=== PATIENT | male | born 1960 | race Caucasian/White ===

== ENCOUNTER 2017-04-09 14:18 | Emergency (ER) | payer OTHER ==
[2017-04-09 14:27] VITALS: TEMP 98.6; BMI 31.1
--- NOTE | 2017-04-09 15:53 | PDOC ---
History of Present Illness - General Chief Complaint: Pain, Acute Stated Complaint: LOWER EXTREMITY PAIN Time Seen by Provider: 04/09/17 15:14 History Source: Patient Exam Limitations: No Limitations - History of Present Illness Initial Comments: 04/09/17 15:36 Patient is a [56-year-old male with no significant medical history currently on no medication was sent by Dr. michel for evaluation of bilateral leg cramping. Patient reports he had 2 episodes of sudden onset of abdominal cramping " charley horse" to left lower calf and right upper thigh. One incident occurred on the other one this morning. Has dull ache to area since. There is no swelling. Denies trauma. 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 ] Past Medical History: [Denies]. Allergies: No known allergies Medications: [None] Family History: Non-contributory Social History: Denies smoking, alcohol use, or IVDU Review of Systems GENERAL/CONSTITUTIONAL: [No fever or chills. No weakness. No weight change.] HEAD, EYES, EARS, NOSE AND THROAT: [No change in vision. No ear pain or discharge. No sore throat. ] CARDIOVASCULAR: [No chest pain or shortness of breath.] RESPIRATORY: [No cough, wheezing, or hemoptysis.] GASTROINTESTINAL: [No nausea, vomiting, diarrhea or constipation. No rectal bleeding.] GENITOURINARY: [No dysuria, frequency, or change in urination.] MUSCULOSKELETAL: [No joint or muscle swelling or pain. No neck or back pain. Cramping to the Left calf, and the right upper thigh. ] SKIN AND BREASTS: [No rash or easy bruising.] NEUROLOGIC: [No headache, vertigo, loss of consciousness, or loss of sensation.] ENDOCRINE: [No increased thirst. No abnormal weight change.] HEMATOLOGIC/LYMPHATIC: [No anemia, easy bleeding, or history of blood clots.] ALLERGIC/IMMUNOLOGIC: [No hives or skin allergy. No latex allergy.] Physical Exam: GENERAL: [The patient is awake, alert, and fully oriented, in no acute distress. ] EYES: [Pupils equal, round and reactive to light, extraocular movements intact, sclera anicteric, conjunctiva clear.] ENT: [Ears normal, nares patent, oropharynx clear without exudates. Moist mucous membranes. No uvula deviation] NECK: [Normal range of motion, supple without lymphadenopathy, JVD, or masses.] LUNGS: [Breath sounds equal, clear to auscultation bilaterally. No wheezes, and no crackles.] HEART: [Regular rate and rhythm, normal S1 and S2 without murmur, rub or gallop. ] ABDOMEN: [Soft, nontender, normoactive bowel sounds. No guarding, no rebound. No masses. No bruising or abrasions] MUSCULOSKELETAL: [Normal range of motion, no edema. No palpable spasm. No clubbing or cyanosis. No cords, erythema, or tenderness. NEUROLOGICAL: [Cranial nerves II through XII grossly intact. Normal speech, normal gait.] SKIN: [Warm, Dry, normal turgor, no rashes or lesions noted. No erythema or edema. ] 04/09/17 16:47 Past History - Past Medical History Allergies/Adverse Reactions: Allergies Allergy/AdvReac Type Severity Reaction Status Date / Time No Known Allergies Allergy Verified 04/09/17 14:22 Home Medications: Ambulatory Orders Omeprazole 20 mg PO ASDIR 04/09/17 COPD: No GI Disorders: Yes (gerd) - Immunization History Immunization Up to Date: Yes - Suicide/Smoking/Psychosocial Hx Smoking History: Current every day smoker Number of Cigarettes Smoked Daily: 1 Information on smoking cessation initiated: No Hx Alcohol Use: Yes *Physical Exam - Vital Signs Last Vital Signs Temp Pulse Resp BP Pulse Ox 98.6 F 87 20 133/83 96 04/09/17 14:22 04/09/17 14:22 04/09/17 14:22 04/09/17 14:22 04/09/17 14:22 ED Treatment Course - LABORATORY CBC & Chemistry Diagram: 04/09/17 16:03 04/09/17 15:52 Medical Decision Making - Medical Decision Making 04/09/17 16:49 A/P: Patient here for evaluation of sudden onset of spasm, cramping to left calf and right upper thigh. Patient was sent by PMD to rule out DVT. Patient with no risk factors, no edema to bilateral lower extremities will perform CBC, CMP, magnesium levels and perform ultrasound rule out DVT bilateral lower extremity 04/09/17 17:46 Laboratory Results - last 24 hr 04/09/17 04/09/17 15:52 16:03 WBC 10.5 H RBC 4.91 Hgb 13.7 Hct 41.1 MCV 83.6 MCH 27.9 MCHC 33.3 RDW 15.2 Plt Count 367 MPV 6.9 L Neutrophils % 67.5 Lymphocytes % 19.7 Monocytes % 10.3 H Eosinophils % 1.9 Basophils % 0.6 Sodium 140 Potassium 3.9 Chloride 106 Carbon Dioxide 26 Anion Gap 8 BUN 20 H Creatinine 1.1 Creat Clearance w eGFR > 60 Random Glucose 120 H Calcium 8.2 L Magnesium 2.0 Total Bilirubin 0.5 AST 18 ALT 34 Alkaline Phosphatase 121 H Total Protein 7.0 Albumin 3.2 L 04/09/17 18:31 Ultrasound no evidence of DVT we'll discharge patient home, to increase fluids. Follow-up with PMD on Tuesday.I discussed the physical exam findings, ancillary test results and final diagnoses with the patient. I answered all of the patient 's questions. The patient was satisfied with the care received and felt comfortable with the discharge plan and treatment plan. The patient will call to arrange follow-up and will return to the Emergency Department with any new, persistent or worsening symptoms. *DC/Admit/Observation/Transfer Diagnosis at time of Disposition: Leg cramping - Discharge Dispostion Disposition: HOME Condition at time of disposition: Stable Admit: No - Referrals Referrals: Trini Olsen [Primary Care Provider] - - Patient Instructions Additional Instructions: Please increase your fluid intake, Gatorade Motrin for the pain. - Post Discharge Activity Forms/Work/School Notes: Back to Work
[2017-04-09 16:12] LABS: BASO % 0.6 % (0-2.0); EOS % 1.9 % (0-4.5); HEMATOCRIT 41.1 % (35.4-49); HEMOGLOBIN 13.7 GM/dL (11.7-16.9); LYMPH % 19.7 % (8-40); MCH 27.9 pg (25.7-33.7); MCHC 33.3 g/dl (32.0-35.9); MEAN CELL VOLUME 83.6 fl (80-96); MEAN PLT VOLUME 6.9 fl (7.5-11.1); MONO % 10.3 % (3.8-10.2); NEUT % 67.5 % (42.8-82.8); PLATELET COUNT 367 K/MM3 (134-434); RBC 4.91 M/mm3 (4.00-5.60); RDW 15.2 % (11.9-15.9); WHITE BLOOD COUNT 10.5 K/mm3 (4.0-10.0)
[2017-04-09 16:40] LABS: ALBUMIN 3.2 g/dl (3.4-5.0); ALK PHOS 121 U/L (45-117); ANION GAP 8 (8-16); BILIRUBIN,TOTAL 0.5 mg/dL (0.2-1.0); BLOOD UREA NITROGEN 20 mg/dL (7-18); CALCIUM 8.2 mg/dL (8.5-10.1); CHLORIDE 106 mmol/L (98-107); CO2 26 mmol/L (21-32); CREATININE 1.1 mg/dL (0.7-1.3); GLUCOSE,RANDOM 120 mg/dL (74-106); POTASSIUM 3.9 mmol/L (3.5-5.1); SGOT/AST 18 U/L (15-37); SGPT/ALT 34 U/L (12-78); SODIUM 140 mmol/L (136-145)
[2017-04-09 18:53] VITALS: BP 137/101; PULSE 78
== END 2017-04-09 18:54 | disposition home or self-care (01) ==
LOC: JERFT 14:18 → JER 14:18
DX: M62.831 Muscle spasm of calf (principal)
CPT/HCPCS: 36415; 80053; 83735; 85025; 93970-TC; 99282-25

== ENCOUNTER 2018-06-06 18:04 | Observation (INO) | payer OTHER ==
[2018-06-06 18:19] VITALS: BMI 31.7
[2018-06-06] MEDS ORDERED: ASPIRIN 81 MG CHEWABLE TABLETS PO ONE (18:19)
--- NOTE | 2018-06-06 18:19 | PDOC ---
Rapid Medical Evaluation Chief Complaint: Chest Pain Time Seen by Provider: 06/06/18 18:08 Medical Evaluation: Allergies Allergy/AdvReac Type Severity Reaction Status Date / Time No Known Allergies Allergy Verified 06/06/18 18:16 06/06/18 18:16 c/o left sided chest pain x 5 days. history of hypercholestermia, sleep apnea. denies fever/ chills, nausea vomiting. PE: patient alert ox3. A; chest pain P: labs xray ekg patient to the ER for further management Discharge Disposition - Diagnosis Chest pain Qualifiers: Chest pain type: other chest pain Qualified Code(s): R07.89 - Other chest pain ; R07.8 - Other chest pain - Referrals Referrals: Trini Olsen [Primary Care Provider] - - Patient Instructions - Post Discharge Activity
[2018-06-06] MEDS ORDERED: ASPIRIN 81 MG CHEWABLE TABLETS ONE (18:36)
[2018-06-06 18:52] LABS: BASO % 0.3 % (0-2.0); EOS % 1.6 % (0-4.5); HEMOGLOBIN 13.8 GM/dL (11.7-16.9); LYMPH % 26.1 % (8-40); MCH 28.2 pg (25.7-33.7); MCHC 33.6 g/dl (32.0-35.9); MEAN CELL VOLUME 84.1 fl (80-96); MONO % 9.1 % (3.8-10.2); NEUT % 62.9 % (42.8-82.8); PLATELET COUNT 440 K/MM3 (134-434); RBC 4.87 M/mm3 (4.00-5.60); RDW 14.9 % (11.9-15.9); WHITE BLOOD COUNT 9.4 K/mm3 (4.0-10.0)
[2018-06-06 19:08] LABS: INR 0.92 (0.83-1.09); PROTHROMBIN TIME (PATIENT) 10.9 SEC (9.7-13.0)
--- NOTE | 2018-06-06 19:30 | PDOC ---
History of Present Illness - General Chief Complaint: Chest Pain Stated Complaint: Chest Pain Time Seen by Provider: 06/06/18 18:08 - History of Present Illness Initial Comments: 06/06/18 19:27 57 yo M with h/o HLD, GERD, WILBERT on CPAP who p/w retrosternal chest pain and pressure. Patient reports 4-5 days of unremitting, retrosternal chest pressure radiating to left shoulder and arm, with no identifiable alleviators and triggers. Pt denies h/o similar symptoms. Pt. family at bedside report 1 month increased Summers. Patient adherent to daily ASA 81 mg, but not with antihypertensive regimen 5 mg Lisinorpil because he feels asymptomatic, or statin medication d/t myalgias. CTA chest 10/31/17 unremarkable. Echo 11/08 with LV dilation, but nml Ef. Patient denies BARON, vision change, palpitations, cough, wheezing, orthopena, PND , leg swelling/pain, N/V, F,C, urinary complaints, hematuria, BPR, abdominal pain, diarrhea, constipation, lightheadedness, weakness, sensory changes. PMHx: as noted above. Denies h/o OK, stent placement, CABG. Pt. reports followign with cardiology 6 months ago, and advised to undergo cardiac catherization. Denies h/o PE/DVT. ROS: as noted SHx: tobacco use on weekends.Denies IVDA Allergies: NKDA Past History - Past Medical History Allergies/Adverse Reactions: Allergies Allergy/AdvReac Type Severity Reaction Status Date / Time No Known Allergies Allergy Verified 06/06/18 18:16 Home Medications: Ambulatory Orders Omeprazole 20 mg PO ASDIR 04/09/17 Aspirin Coated [Ecotrin -] 81 mg PO DAILY #30 tablet.ec 10/31/17 Lisinopril [Prinivil] 5 mg PO DAILY #30 tablet 10/31/17 [place]-3 Acid Ethyl Esters [Lovaza -] 2 gm PO BID #120 cap 10/31/17 COPD: No GI Disorders: Yes (gerd) HTN: Yes Hypercholesterolemia: Yes - Immunization History Immunization Up to Date: Yes - Suicide/Smoking/Psychosocial Hx Smoking History: Current some day smoker Number of Cigarettes Smoked Daily: 10 Information on smoking cessation initiated: No Hx Alcohol Use: No Drug/Substance Use Hx: No Review of Systems - Review of Systems Comments:: 06/06/18 19:29 GENERAL/CONSTITUTIONAL: No fever or chills. No weakness. HEAD, EYES, EARS, NOSE AND THROAT: No change in vision. No ear pain or discharge. No sore throat. CARDIOVASCULAR: + chest pain and shortness of breath RESPIRATORY: No cough, wheezing, or hemoptysis. GASTROINTESTINAL: No nausea, vomiting, diarrhea or constipation. GENITOURINARY: No dysuria, frequency, or change in urination. MUSCULOSKELETAL: No joint or muscle swelling or pain. No neck or back pain. SKIN: No rash NEUROLOGIC: No headache, vertigo, loss of consciousness, or change in strength/ sensation. ENDOCRINE: No increased thirst. No abnormal weight change HEMATOLOGIC/LYMPHATIC: No anemia, easy bleeding, or history of blood clots. ALLERGIC/IMMUNOLOGIC: No hives or skin allergy. *Physical Exam - Vital Signs Last Vital Signs Temp Pulse Resp BP Pulse Ox 97.5 F L 59 L 18 165/94 97 06/06/18 18:16 06/06/18 18:16 06/06/18 18:16 06/06/18 18:16 06/06/18 18:16 - Physical Exam Comments: 06/06/18 19:29 GENERAL: Awake, alert, and fully oriented, in no acute distress HEAD: No signs of trauma, normocephalic, atraumatic EYES: PERRLA, EOMI, sclera anicteric, conjunctiva clear ENT: Hearing grossly normal, nares patent, oropharynx clear without exudates. Moist mucosa NECK: Normal ROM, supple, no lymphadenopathy, JVD, or masses LUNGS: No distress, speaks full sentences, clear to auscultation bilaterally HEART: Regular rate and rhythm, normal S1 and S2, no murmurs, rubs or gallops, peripheral pulses normal and equal bilaterally. ABDOMEN: Soft, nontender, normoactive bowel sounds. No guarding, no rebound. No masses EXTREMITIES : Normal inspection, Normal range of motion, no edema. No clubbing or cyanosis. NEUROLOGICAL: Cranial nerves II through XII grossly intact. Normal speech, normal gait, no focal sensorimotor deficits SKIN: Warm, Dry, normal turgor, no rashes or lesions noted Heart Score/ECG Review - History History: Highly suspicious - Electrocardiogram EKG: Normal - Age Age: 45-65 - Risk Factors Risk Factors Heart Score: Yes Hx Hypercholesterolemia, Yes Hx Hypertension, Yes Smoking History, Yes Positive family hx of cardiac disease, Yes Hx Obesity Based on the list above the patient has:: >/=3 risk factors or Hx atherosclerotic disease - Troponin Troponin: </= normal limit - Score Heart Score - Total: 5 ED Treatment Course - LABORATORY CBC & Chemistry Diagram: 06/06/18 18:34 06/06/18 20:07 - ADDITIONAL ORDERS Additional order review: Laboratory Results 06/06/18 18:34 PT with INR 10.90 INR 0.92 06/06/18 18:34 RBC 4.87 MCV 84.1 MCHC 33.6 RDW 14.9 MPV 7.0 L Neutrophils % 62.9 Lymphocytes % 26.1 D Monocytes % 9.1 Eosinophils % 1.6 Basophils % 0.3 - Medications Given in the ED: ED Medications Discontinued Medications Generic Name Dose Route Start Last Admin Trade Name Freq PRN Reason Stop Dose Admin Aspirin 162 mg 06/06/18 18:19 06/06/18 18:38 Asa - PO 06/06/18 18:20 162 mg ONCE ONE Administration Medical Decision Making - Medical Decision Making 06/06/18 19:45 57 yo M with h/o HLD, GERD, WILBERT on CPAP who p/w 4-5 days retrosternal chest pain /pressure, radiating to left arm, and pressure and 1 month Summers. BP 161/102, vitals otherwise wnl, AF, A&Ox3. Physical exam unremarkable. ACS/OK r/o. Low risk PE based on Weils. R/o PNA. No evidence fluid overload. Low suspicion CHF, asthma, COPD. Nlo evidence aortic dissection. Currently no clinical s/s of end organ dysfunction. ED Course: Lisnopril 10 mg EKG: NSR with absent TARIK, STD. Nml interval duration and axis. Nml R wave progression. Neg Q waves. CBC: Unremarkable 06/06/18 20:38 Heart Score 5 06/06/18 20:59 CMP: Unremarkable Trop: Neg 06/06/18 21:18 Plan to admit tele/obs Dr. Reuben Stephen 06/06/18 21:45 Pt. placed on CPAP for WILBERT *DC/Admit/Observation/Transfer Diagnosis at time of Disposition: Chest pain Qualifiers: Chest pain type: other chest pain Qualified Code(s): R07.89 - Other chest pain - Discharge Dispostion Condition at time of disposition: Stable Decision to Admit order: Yes - Referrals - Patient Instructions - Post Discharge Activity
[2018-06-06] MEDS ORDERED: LISINOPRIL 10 MG TABLET (FP) PO ONE (19:58)
--- NOTE | 2018-06-06 20:40 | PDOC ---
Documentation entered by Jona Jim SCRIBE, acting as scribe for Anusha Pacheco MD. Attending Attestation - Resident Resident Name: Ranjit Engel - ED Attending Attestation I have performed the following: I have examined & evaluated the patient, The case was reviewed & discussed with the resident, I agree w/resident's findings & plan, Exceptions are as noted - HPI HPI: 06/06/18 20:08 The patient is a 57 year old male with a significant past medical history of hyperlipidemia, GERD, sleep apnea, and hypertension (non compliant with meds) who presents to the emergency department with chest pain for 5 days. The patient reports that his chest pain has been sternal with radiation to his left arm. As noted by family, the patient has been experiencing some dyspnea on exertion. He denies any fever, chills, nausea, Vomiting, diarrhea, constipation or urinary symptoms. The patient states that he was advised to come into the ED for further evaluation form his PMD. The patient denies any other complaints. - Physicial Exam PE: GENERAL: Awake, alert, and fully oriented, in no acute distress HEAD: No signs of trauma EYES: PERRLA, EOMI, sclera anicteric, conjunctiva clear ENT: Auricles normal inspection, hearing grossly normal, nares patent, oropharynx clear without exudates. Moist mucosa NECK: Normal ROM, supple, no lymphadenopathy, JVD, or masses LUNGS: Breath sounds equal, clear to auscultation bilaterally. No wheezes, and no crackles HEART: Regular rate and rhythm, normal S1 and S2, no murmurs, rubs or gallops ABDOMEN: Soft, nontender, normoactive bowel sounds. No guarding, no rebound. No masses EXTREMITIES: Normal range of motion, no edema. No clubbing or cyanosis. No cords, erythema, or tenderness NEUROLOGICAL: Cranial nerves II through XII grossly intact. Normal speech, normal gait. Motor and sensation intact SKIN: Warm, Dry, normal turgor, no rashes or lesions noted. - Medical Decision Making Pt with recent exertional cp, shortness of breath. Poor adherence to his med regimen, poor understanding that HTN is typically asymptomatic but can lead to AK/CVA. We discussed importance of taking medications, and if he is having side effects, to discuss with his physician (for instance, he is getting muscle cramping with lipitor, may need crestor). In light of recent symptoms, will require admission for further workup. Heart Score/ECG Review - History History: Highly suspicious - Electrocardiogram EKG: Normal - Age Age: 45-65 - Risk Factors Risk Factors Heart Score: Yes Hx Hypercholesterolemia, Yes Hx Hypertension, Yes Hx Obesity Based on the list above the patient has:: >/=3 risk factors or Hx atherosclerotic disease - Troponin Troponin: </= normal limit - Score Heart Score - Total: 5 - ECG Impressions Comment:: EKG 18:02- NSR 78 bpm, no acute ST/T changes Anusha Pacheco MD: This documentation has been prepared by the Hernán dan Collisia, SCRIBE, under my direction and personally reviewed by me in its entirety. I confirm that the documentation accurately reflects all work, treatment, procedures, and medical decision making performed by me.
[2018-06-06 20:57] LABS: ALBUMIN 3.3 g/dl (3.4-5.0); ALK PHOS 107 U/L (45-117); ANION GAP 9 MMOL/L (8-16); BILIRUBIN,TOTAL 0.4 mg/dL (0.2-1); BLOOD UREA NITROGEN 16 mg/dL (7-18); CALCIUM 9.1 mg/dL (8.5-10.1); CHLORIDE 111 mmol/L (98-107); CO2 23 mmol/L (21-32); CREATININE 0.8 mg/dL (0.55-1.3); GLUCOSE,RANDOM 89 mg/dL (74-106); LIPASE 160 U/L (73-393); MAGNESIUM 1.9 mg/dL (1.8-2.4); POTASSIUM 4.3 mmol/L (3.5-5.1); SGOT/AST 20 U/L (15-37); SGPT/ALT 24 U/L (13-61); SODIUM 143 mmol/L (136-145)
--- NOTE | 2018-06-06 22:16 | HP ---
CHIEF COMPLAINT: Chest Pain PCP: Dr Olsen HISTORY OF PRESENT ILLNESS: Pt is a 57 y/o gentleman with a significant past medical history of HLD, HTN, WILBERT on CPAP, who presented to [facility] at the behest of his PMD due to left sided chest pain and arm pain. Per pt, he endured a mechanical fall a few months ago and landed on his left arm. Since this injury, t has had intermittent left arm pain. Beginning 5 days ago, pt developed left sided chest pain. Pt describes this pain as sharp in nature and intermittent. Pt states that he notices the pain is exacerbated when he is on a recliner chair; pain is assuaged when he is lying in a supine position. Pt endorses he tried Tylenol which partially decreased his pain. 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 When questioned about whether chest pain is related to physical activity, pt stated he did experience any chest pain during work this afternoon. Denies any h/o HI or cardiac abnormalities. Recently underwent a stress test 2 months ago in which he was told it was "very good". Denies chest pain, shortness of breath, nausea/vomiting, diaphoresis, or lightheadedness. Social Hx- Smokes 1/2 pack cigarettes on weekend. Drinks whiskey on weekends, small glass. Surg Hx R meniscus repair FH Father NC, Mother NC. Sister DM NKDA ER course was notable for: (1) Troponin <0.02. No EKG changes (2) (3) Family History: Allergies No Known Allergies Allergy (Verified 06/06/18 18:16) HOME MEDICATIONS: Home Medications Medication Instructions Recorded Omeprazole 20 mg PO ASDIR 04/09/17 Aspirin Coated [Ecotrin -] 81 mg PO DAILY #30 tablet.ec 10/31/17 Lisinopril [Prinivil] 5 mg PO DAILY #30 tablet 10/31/17 [place]-3 Acid Ethyl Esters [Lovaza 2 gm PO BID #120 cap 10/31/17 -] REVIEW OF SYSTEMS CONSTITUTIONAL: Absent: fever, chills, diaphoresis, generalized weakness, malaise, loss of appetite, weight change HEENT: Absent: rhinorrhea, nasal congestion, throat pain, throat swelling, difficulty swallowing, mouth swelling, ear pain, eye pain, visual changes CARDIOVASCULAR: PRESENT chest pain RESPIRATORY: Absent: cough, shortness of breath, dyspnea with exertion, orthopnea, wheezing, stridor, hemoptysis GASTROINTESTINAL: Absent: abdominal pain, abdominal distension, nausea, vomiting, diarrhea, constipation, melena, hematochezia GENITOURINARY: Absent: dysuria, frequency, urgency, hesitancy, hematuria, flank pain, genital pain MUSCULOSKELETAL: PRESENT: myalgia SKIN: Absent: rash, itching, pallor HEMATOLOGIC/IMMUNOLOGIC: Absent: easy bleeding, easy bruising, lymphadenopathy, frequent infections ENDOCRINE: Absent: unexplained weight gain, unexplained weight loss, heat intolerance, cold intolerance NEUROLOGIC: Absent: headache, focal weakness or paresthesias, dizziness, unsteady gait, seizure, mental status changes, bladder or bowel incontinence PSYCHIATRIC: Absent: anxiety, depression, suicidal or homicidal ideation, hallucinations. PHYSICAL EXAMINATION Vital Signs - 24 hr 06/06/18 06/06/18 18:16 19:40 Temperature 97.5 F L 97.7 F Pulse Rate 59 L 83 Pulse Rate [ 83 Left] Respiratory 18 20 Rate Blood Pressure 165/94 Blood Pressure 161/106 H [Right] O2 Sat by Pulse 97 96 Oximetry (%) GENERAL: AAOx3 NAD HEAD: Normal with no signs of trauma. EYES: EOMI Sclera Clear EARS, NOSE, THROAT: MMM NECK: Supple No JVD LUNGS: Decreased bs at bases HEART: RRR Nl s1s2, reproducible left sided chest chain TTP. ABDOMEN: Ventral Hernia. Obese NDNT MUSCULOSKELETAL: FROM UPPER EXTREMITIES: 2+ pulses, warm, well-perfused. No cyanosis. No clubbing. No peripheral edema. LOWER EXTREMITIES:DP 2+, No CCE NEUROLOGICAL: Cranial nerves II-XII intact. Normal speech. PSYCHIATRIC: Cooperative. Good eye contact. Appropriate mood and affect. SKIN: Warm, dry, normal turgor, no rashes or lesions noted, normal capillary refill. Laboratory Results - last 24 hr 06/06/18 06/06/18 06/06/18 18:34 18:34 18:34 WBC 9.4 RBC 4.87 Hgb 13.8 Hct 41.0 MCV 84.1 MCH 28.2 MCHC 33.6 RDW 14.9 Plt Count 440 H MPV 7.0 L Absolute Neuts (auto) 5.9 Neutrophils % 62.9 Lymphocytes % 26.1 D Monocytes % 9.1 Eosinophils % 1.6 Basophils % 0.3 Nucleated RBC % 0 PT with INR 10.90 INR 0.92 Sodium Cancelled Potassium Cancelled Chloride Cancelled Carbon Dioxide Cancelled Anion Gap Cancelled BUN Cancelled Creatinine Cancelled Creat Clearance w eGFR Cancelled Random Glucose Cancelled Calcium Cancelled Magnesium Cancelled Total Bilirubin Cancelled AST Cancelled ALT Cancelled Alkaline Phosphatase Cancelled Creatine Kinase Cancelled Troponin I Cancelled Total Protein Cancelled Albumin Cancelled Lipase 06/06/18 06/06/18 06/06/18 20:07 20:07 20:07 WBC RBC Hgb Hct MCV MCH MCHC RDW Plt Count MPV Absolute Neuts (auto) Neutrophils % Lymphocytes % Monocytes % Eosinophils % Basophils % Nucleated RBC % PT with INR INR Sodium 143 Potassium 4.3 Chloride 111 H Carbon Dioxide 23 Anion Gap 9 BUN 16 Creatinine 0.8 Creat Clearance w eGFR 99.29 Random Glucose 89 Calcium 9.1 Magnesium 1.9 Cancelled Total Bilirubin 0.4 AST 20 ALT 24 Alkaline Phosphatase 107 Creatine Kinase 148 Cancelled Troponin I < 0.02 Cancelled Total Protein 7.0 Albumin 3.3 L Lipase 160 Cancelled 06/06/18 20:07 WBC RBC Hgb Hct MCV MCH MCHC RDW Plt Count MPV Absolute Neuts (auto) Neutrophils % Lymphocytes % Monocytes % Eosinophils % Basophils % Nucleated RBC % PT with INR INR Sodium Potassium Chloride Carbon Dioxide Anion Gap BUN Creatinine Creat Clearance w eGFR Random Glucose Calcium Magnesium Total Bilirubin AST ALT Alkaline Phosphatase Creatine Kinase Cancelled Troponin I Cancelled Total Protein Albumin Lipase ASSESSMENT/PLAN: Pt is a 57 y/o gentleman with a significant past medical history of HLD, HTN, WILBERT on CPAP, who presented to [facility] at the behest of his PMD due to left sided chest pain and arm pain. Atypical Chest Pain. R/o ACS. -Troponin <0.02 -Given ASA 162 in ED. Will continue on ASA 81 Daily -No EKG abnormalities. No ST/T changes. -Trend Troponin -Can undergo cardiac work-up as outpatient including echo -Underwent stress test 2 months ago. Was told normal. HLD -Was on STATIN. No longer taking medication as experienced severe myalgia -Consider alternative agent. Repatha? HTN States he was taking Lisinopril but no longer taking as he feels well. Counseled on medication compliance and importance of daily adherence Counseled on a low carbohydrate diet, avoidance of sugary beverages WILBERT C/w CPA FEN No standing fluids Monitor Electrolytes Low Salt Diet DVT ppx: HEPSQTID Dispo: Tele Obs Visit type - Emergency Visit Emergency Visit: Yes ED Registration Date: 06/06/18 Care time: The patient presented to the Emergency Department on the above date and was hospitalized for further evaluation of their emergent condition. - New Patient This patient is new to me today: Yes Date on this admission: 06/07/18 - Critical Care Critical Care patient: No
[2018-06-06] MEDS ORDERED: LISINOPRIL 5 MG TABLET (FP) ONE (22:24)
--- NOTE | 2018-06-06 23:01 | PN ---
Teaching Attending Note Name of Resident: Brady Cross ATTENDING PHYSICIAN STATEMENT I saw and evaluated the patient. I reviewed the resident's note and discussed the case with the resident. I agree with the resident's findings and plan as documented. CC: sent from the PMD office for 1 week of chest pain SUBJECTIVE: He is a 57 Y/O M W HTN, HLD,Obesity, WILBERT on CPAP, P/W 1 week of recurrent episodes of sharp, non radiating , left sided, chest pain, lasting for 1-3 seconds, usually gets triggered with sitting on his recliner ad moving his arm in a certain way,does not feel it when he is moving heavy articles or during any other physical activity, no SOB, no palpitation, no STEWART during theses episodes. States that has unlimited ET with no recent change. has no rash on the skin, no Hx of zoster, no other cardiopulmonary complaints with the episode. The chronic sharp neuropathic pain in the L arm dose not correlate with the pain in the OBJECTIVE: in no distress CVS:S1S2 CTAB Abd:BS+ NT/ND ext: no edema, 2+ DP pulses B/L CBCD WBC 9.4 K/mm3 (4.0-10.0) 06/06/18 18:34 RBC 4.87 M/mm3 (4.00-5.60) 06/06/18 18:34 Hgb 13.8 GM/dL (11.7-16.9) 06/06/18 18:34 Hct 41.0 % (35.4-49) 06/06/18 18:34 MCV 84.1 fl (80-96) 06/06/18 18:34 MCHC 33.6 g/dl (32.0-35.9) 06/06/18 18:34 RDW 14.9 % (11.9-15.9) 06/06/18 18:34 Plt Count 440 K/MM3 (134-434) H 06/06/18 18:34 MPV 7.0 fl (7.5-11.1) L 06/06/18 18:34 CMP Sodium 143 mmol/L (136-145) 06/06/18 20:07 Potassium 4.3 mmol/L (3.5-5.1) 06/06/18 20:07 Chloride 111 mmol/L (98-107) H 06/06/18 20:07 Carbon Dioxide 23 mmol/L (21-32) 06/06/18 20:07 Anion Gap 9 MMOL/L (8-16) 06/06/18 20:07 BUN 16 mg/dL (7-18) 06/06/18 20:07 Creatinine 0.8 mg/dL (0.55-1.3) 06/06/18 20:07 Creat Clearance w eGFR 99.29 (>60) 06/06/18 20:07 Random Glucose 89 mg/dL (74-106) 06/06/18 20:07 Calcium 9.1 mg/dL (8.5-10.1) 06/06/18 20:07 Total Bilirubin 0.4 mg/dL (0.2-1) 06/06/18 20:07 AST 20 U/L (15-37) 06/06/18 20:07 ALT 24 U/L (13-61) 06/06/18 20:07 Alkaline Phosphatase 107 U/L (45-117) 06/06/18 20:07 Total Protein 7.0 g/dl (6.4-8.2) 06/06/18 20:07 Albumin 3.3 g/dl (3.4-5.0) L 06/06/18 20:07 CARDIAC ENZYMES Creatine Kinase 148 U/L (26-308) 06/06/18 20:07 Troponin I < 0.02 ng/ml (0.00-0.05) 06/06/18 20:07 ASSESSMENT AND PLAN: 57 Y/O M W cardiovascular RF, with non anginal chest pain. less likely to be in the setting of ACS, recent TTE with no significant Valcular disease. pain is most likely MSK pain. At the same time in the setting of WILBERT should consider arrhythmia as cause of episodes of sharp pain, but can be evaluate as O/P Will C/W ASA. statin, AntiHTN medication rest of the management per HS note.
[2018-06-07 02:26] VITALS: TEMP 98.6
--- NOTE | 2018-06-07 03:14 | DS ---
Physical Exam: SUBJECTIVE: Patient seen and examined. OBJECTIVE: Vital Signs Period Temp Pulse Resp BP Sys/Reynoso Pulse Ox Last 24 Hr 97.5 F-98.6 F 59-87 18-20 122-165/76-106 96-100 PHYSICAL EXAM GENERAL: AAOx3 NAD HEAD: Normal with no signs of trauma. EYES: EOMI Sclera Clear EARS, NOSE, THROAT: MMM NECK: Supple No JVD LUNGS: Decreased bs at bases HEART: RRR Nl s1s2, reproducible left sided chest chain TTP. ABDOMEN: Ventral Hernia. Obese NDNT MUSCULOSKELETAL: FROM UPPER EXTREMITIES: 2+ pulses, warm, well-perfused. No cyanosis. No clubbing. No peripheral edema. LOWER EXTREMITIES:DP 2+, No CCE NEUROLOGICAL: Cranial nerves II-XII intact. Normal speech. PSYCHIATRIC: Cooperative. Good eye contact. Appropriate mood and affect. SKIN: Warm, dry, normal turgor, no rashes or lesions noted, normal capillary refill. LABS Laboratory Results - last 24 hr 06/06/18 06/06/18 06/06/18 18:34 18:34 18:34 WBC 9.4 RBC 4.87 Hgb 13.8 Hct 41.0 MCV 84.1 MCH 28.2 MCHC 33.6 RDW 14.9 Plt Count 440 H MPV 7.0 L Absolute Neuts (auto) 5.9 Neutrophils % 62.9 Lymphocytes % 26.1 D Monocytes % 9.1 Eosinophils % 1.6 Basophils % 0.3 Nucleated RBC % 0 PT with INR 10.90 INR 0.92 Sodium Cancelled Potassium Cancelled Chloride Cancelled Carbon Dioxide Cancelled Anion Gap Cancelled BUN Cancelled Creatinine Cancelled Creat Clearance w eGFR Cancelled Random Glucose Cancelled Calcium Cancelled Magnesium Cancelled Total Bilirubin Cancelled AST Cancelled ALT Cancelled Alkaline Phosphatase Cancelled Creatine Kinase Cancelled Troponin I Cancelled Total Protein Cancelled Albumin Cancelled Lipase 06/06/18 06/06/18 06/06/18 20:07 20:07 20:07 WBC RBC Hgb Hct MCV MCH MCHC RDW Plt Count MPV Absolute Neuts (auto) Neutrophils % Lymphocytes % Monocytes % Eosinophils % Basophils % Nucleated RBC % PT with INR INR Sodium 143 Potassium 4.3 Chloride 111 H Carbon Dioxide 23 Anion Gap 9 BUN 16 Creatinine 0.8 Creat Clearance w eGFR 99.29 Random Glucose 89 Calcium 9.1 Magnesium 1.9 Cancelled Total Bilirubin 0.4 AST 20 ALT 24 Alkaline Phosphatase 107 Creatine Kinase 148 Cancelled Troponin I < 0.02 Cancelled Total Protein 7.0 Albumin 3.3 L Lipase 160 Cancelled 06/06/18 06/07/18 20:07 02:37 WBC RBC Hgb Hct MCV MCH MCHC RDW Plt Count MPV Absolute Neuts (auto) Neutrophils % Lymphocytes % Monocytes % Eosinophils % Basophils % Nucleated RBC % PT with INR INR Sodium Potassium Chloride Carbon Dioxide Anion Gap BUN Creatinine Creat Clearance w eGFR Random Glucose Calcium Magnesium Total Bilirubin AST ALT Alkaline Phosphatase Creatine Kinase Cancelled Troponin I Cancelled < 0.02 Total Protein Albumin Lipase HOSPITAL COURSE: Date of Admission:06/06/18 Pt is a 57 y/o gentleman with a significant PMH of WILBERT, HLD, and HTN [facility] and left arm pain. Two Troponin levels were negative. EKG revealed no abnormalities. Pt DC'ed home with instructions to follow up with his soap tender this week as well as his primary care doctor. Date of Discharge: 06/07/18 Minutes to complete discharge: 35 Discharge Summary Reason For Visit: SENSATION OF CHEST PRESSURE, CHEST PAIN Condition: Stable - Instructions Diet, Activity, Other Instructions: You were in the hospital because you had chest pain. While you were here, you had an EKG done that did not show any abnormalities. You also had heart enzymes checked- they were normal. Continue your home medications. It is also important that you eat a heart healthy diet to help lose weight. We will provide you with reading on this. Please follow up with your primary care doctor in 1 week Also you must follow with your soap tender. If you do not have a soap tender, you may follow up with Dr. Quintero this week. You should have your cholesterol checked and you will likely need a statin- which is a medication to lower cholesterol. Since you had muscle aches on other statins, the soap tender can discuss alternative choices with you. He will also discuss whether you need to have an ECHO (picture of your heart) taken. Referrals: Larry Quintero MD [Staff Physician] - 1 Week Trini Olsen [Primary Care Provider] - Disposition: HOME - Home Medications Comprehensive Discharge Medication List: Ambulatory Orders Omeprazole 20 mg PO ASDIR 04/09/17 Aspirin Coated [Ecotrin -] 81 mg PO DAILY #30 tablet.ec 10/31/17 Lisinopril [Prinivil] 5 mg PO DAILY #30 tablet 10/31/17 Selma-3 Acid Ethyl Esters [Lovaza -] 2 gm PO BID #120 cap 10/31/17 This patient is new to me today: No Emergency Visit: Yes ED Registration Date: 06/06/18 Care time: The patient presented to the Emergency Department on the above date and was hospitalized for further evaluation of their emergent condition. Critical Care patient: No - Discharge Referral Referred to [facility] No
[2018-06-07 05:59] LABS: BASO % 0.3 % (0-2.0); HEMOGLOBIN 13.2 GM/dL (11.7-16.9); LYMPH % 22.5 % (8-40); MCH 28.2 pg (25.7-33.7); MCHC 33.8 g/dl (32.0-35.9); MEAN CELL VOLUME 83.5 fl (80-96); MEAN PLT VOLUME 6.9 fl (7.5-11.1); MONO % 10.8 % (3.8-10.2); NEUT % 64.4 % (42.8-82.8); PLATELET COUNT 424 K/MM3 (134-434); RBC 4.68 M/mm3 (4.00-5.60); RDW 14.9 % (11.9-15.9); WHITE BLOOD COUNT 8.4 K/mm3 (4.0-10.0)
[2018-06-07] MEDS ORDERED: HEPARIN NA (PORCINE) 5,000 UNITS/ML 1ML VIAL SQ SCH (06:00)
[2018-06-07 06:08] LABS: INR 1.02 (0.83-1.09)
[2018-06-07 06:11] LABS: ACTIVATED PTT 33.1 SECONDS (25.2-36.5)
[2018-06-07 06:31] LABS: ANION GAP 4 MMOL/L (8-16); BLOOD UREA NITROGEN 16 mg/dL (7-18); CALCIUM 8.9 mg/dL (8.5-10.1); CHLORIDE 108 mmol/L (98-107); CO2 27 mmol/L (21-32); CREATININE 0.7 mg/dL (0.55-1.3); GLUCOSE,RANDOM 105 mg/dL (74-106); PHOSPHOROUS 3.5 mg/dL (2.5-4.9); POTASSIUM 4.2 mmol/L (3.5-5.1); SODIUM 139 mmol/L (136-145)
[2018-06-07] MEDS ORDERED: ASPIRIN 81 MG CHEWABLE TABLETS PO SCH (10:00)
--- NOTE | 2018-06-07 12:27 | EKG ---
Test Reason : Blood Pressure : / mmHG Vent. Rate : 078 BPM Atrial Rate : 078 BPM P-R Int : 172 ms QRS Dur : 110 ms QT Int : 364 ms P-R-T Axes : 058 027 049 degrees QTc Int : 414 ms NORMAL SINUS RHYTHM NORMAL ECG WHEN COMPARED WITH ECG OF 30-OCT-2017 15:47, NO SIGNIFICANT CHANGE WAS FOUND Confirmed by JOSIE TENROIO MD ([id number]) on 06/07/2018 12:26:58 PM Referred By: Confirmed By:JOSIE TENORIO MD
[2018-06-07 12:31] VITALS: BP 121/79; PULSE 74
[2018-06-07] MEDS ORDERED: ATORVASTATIN CA 40 MG TABLET (FP) PO SCH (22:00)
== END 2018-06-07 14:00 | disposition home or self-care (01) ==
LOC: JER 18:04 → JERBED 20:00 → J2W 06-07 02:07
PROVIDERS: ADMIT Internal Medicine; ATTEND Internal Medicine
DX: R07.89 Other chest pain (principal); I10 Essential (primary) hypertension; E78.5 Hyperlipidemia, unspecified; K21.9 Gastro-esophageal reflux disease without esophagitis; G47.33 Obstructive sleep apnea (adult) (pediatric); Z99.89 Dependence on other enabling machines and devices; Z91.14 Patient's other noncompliance with medication regimen
CPT/HCPCS: 36415; 71045-TC-FY; 80048; 80053; 82550; 82962; 83690; 83735; 84100; 84484; 85025; 85610; 85730; 93005; 93010; 99285-25; G0378

== ENCOUNTER 2019-11-23 12:07 | Emergency (ER) | payer OTHER ==
[2019-11-23 12:15] VITALS: BMI 31.7
--- NOTE | 2019-11-23 12:41 | PDOC ---
History of Present Illness - General Chief Complaint: Shortness of Breath Stated Complaint: ANXIETY ATTACKS Time Seen by Provider: 11/23/19 12:41 - History of Present Illness Initial Comments: 59 YOM h/o htn, hld, panic attacks, presents with anxiety, chest tightness, rapid heart beat and SOB since today. Has episodes like this since one month. During these episodes he feels anxious w/ palps, cp, sob. Reports sob with walking up stairs lately. Reports recent stress test which was normal. Seen here for cardiac w/u 1 month ago which was negative. Patient experienced blurred vision a week later, saw optho who suggested retinal artery occlusion with recs to f/u and will likely resolve on its own. Since arriving at ER today sx have largely improved. Denies fever, chils, N/V/D, diaphoresis, recent sick contacts, or travel, denies swelling, or pain with inspiration. Constitutional: No Weight Change, No Fever, No Chills, No Night Sweats, No Fatigue, No Malaise ENT/Mouth: No Hearing Changes, No Ear Pain, No Nasal Congestion, No Sinus Pain, No Hoarseness, No sore throat, No Rhinorrhea, No Swallowing Difficulty Eyes: No Eye Pain, No Swelling, No Redness, No Foreign Body, No Discharge, No Vision Changes Cardiovascular: + Chest Pain, + SOB, No PND, + Dyspnea on Exertion, No Orthopnea, No Claudication, No Edema, + Palpitations Respiratory: No Cough, No Sputum, No Wheezing, No Smoke Exposure, No Dyspnea Gastrointestinal: No Nausea, No Vomiting, No Diarrhea, No Constipation, No Pain, No Heartburn, No Anorexia, No Dysphagia, No Hematochezia, No Melena, No Flatulence, No Jaundice Genitourinary: No Dysmenorrhea, No DUB, No Dyspareunia, No Dysuria, No Urinary Frequency, No Hematuria, No Urinary Incontinence, No Urgency, No Flank Pain, No Urinary Flow Changes, No Hesitancy Musculoskeletal: No Arthralgias, No Myalgias, No Joint Swelling, No Joint Stiffness, No Back Pain, No Neck Pain, No Injury History Skin: No Skin Lesions, No Pruritis, No Hair Changes, No Breast/Skin Changes, No Nipple Discharge Neuro: No Weakness, No Numbness, No Paresthesias, No Loss of Consciousness, No Syncope, No Dizziness, No Headache, No Coordination Changes, No Recent Falls Psych: + Anxiety/Panic, No Depression, No Insomnia, No Personality Changes, No Delusions, No Rumination, No SI/HI/AH/VH, No Social Issues, No Memory Changes, No Violence/Abuse Hx., No Eating Concerns Heme/Lymph: No Bruising, No Bleeding, No Transfusions History, No Lymphadenopathy Endocrine: No Polyuria, No Polydipsia, No Temperature Intolerance Past History - Medical History Allergies/Adverse Reactions: Allergies Allergy/AdvReac Type Severity Reaction Status Date / Time No Known Allergies Allergy Verified 11/23/19 12:34 Home Medications: Ambulatory Orders Omeprazole 40 mg PO ASDIR 04/09/17 Aspirin Coated [Ecotrin -] 81 mg PO DAILY #30 tablet.ec 10/31/17 Lisinopril [Prinivil] 5 mg PO DAILY #30 tablet 10/31/17 Buspirone HCl [Buspar -] 10 mg PO BID 11/23/19 Pravastatin Sodium [Pravachol (Nf)] 40 mg PO HS 11/23/19 COPD: No GI Disorders: Yes (gerd) HTN: Yes Hypercholesterolemia: Yes Psychiatric Problems: Yes (Anxiety) - Immunization History Immunization Up to Date: Yes - Psycho-Social/Smoking History Smoking History: Former smoker Have you smoked in the past 12 months: No Number of Cigarettes Smoked Daily: 3 Information on smoking cessation initiated: No - Substance Abuse Hx (Audit-C & DAST Scrn) How often the patient has a drink containing alcohol: Monthly or less Number of drinks the patient has on a typical day: 3 or 4 Score: In Men: 4 or > Positive; In Women: 3 or > Positive: 2 Screen Result (Pos requires Nsg. Audit-10AR): Negative In the last yr the pt used illegal drug/Rx for NonMed reason: No Score: Yes response is considered Positive: 0 Screen Result (Positive result requires Nsg. DAST-10): Negative *Physical Exam - Vital Signs Last Vital Signs Temp Pulse Resp BP Pulse Ox 98.1 F 68 19 170/90 99 11/23/19 12:11 11/23/19 12:11 11/23/19 12:11 11/23/19 12:11 11/23/19 12:11 - Physical Exam General Appearance: Yes: Nourished, Appropriately Dressed, Moderate Distress HEENT: positive: EOMI, IMANI, Normal ENT Inspection, Normal Voice, Symmetrical, TMs Normal, Pharynx Normal Neck: positive: Trachea midline, Normal Thyroid, Rigid Respiratory/Chest: positive: Lungs Clear, Normal Breath Sounds, Respiratory Distress Cardiovascular: positive: Regular Rhythm, Regular Rate, S1, S2 Gastrointestinal/Abdominal: positive: Normal Bowel Sounds, Flat, Soft Musculoskeletal: positive: Normal Inspection, CVA Tenderness ED Treatment Course - LABORATORY CBC & Chemistry Diagram: 11/23/19 13:00 11/23/19 13:00 Medical Decision Making - Medical Decision Making 59 YOM h/o anxiety and retinal artery occlusion presents for sob, rapid heart rate and chest tightness - BP in 170, vitals otherwise wnl - exam wnl - patient reports multiple episodes of similar sx, attributes to anxiety - heart score of 3 - CBC, CMP, cardiac profile, ekg, cxr reassess: - patient is feeling better - will give cardiology, primary care and psycho follow up and dc to home Discharge - Discharge Information Problems reviewed: Yes Clinical Impression/Diagnosis: Anxiety Condition: Good - Admission No - Follow up/Referral Referrals: Swati Olsen-Brittny Mart [Primary Care Provider] - Lonnie Davis MD [Staff Physician] - [facility] [place] [facility] [place] [Provider Group] Steve Roth MD [Non Staff, Medical] - Janice Kat [Non Staff, Medical] - Amber Garrett MD [Staff Physician] - Adama Allison MD [Non Staff, Medical] - Laurent Li MD [Staff Physician] - - Patient Discharge Instructions Patient Printed Discharge Instructions: DI for Anxiety -- Adult Additional Instructions: You came to the ER for rapid heart rate, chest tightness, and feelings of anxiety. You received labs and EKG. You labs and EKG were un concerning for an acute cardiac event. You were considered medically stable and safe to return home. Please follow up with your sales special agent regarding your visit to the ER. Please also consider finding a psychiatrist to manage your anxiety. WHAT YOU NEED TO KNOW: Chest pain can be caused by a range of conditions, from not serious to life- threatening. Chest pain can be a symptom of a digestive problem, such as acid reflux or a stomach ulcer. An anxiety attack or a strong emotion, such as anger, can also cause chest pain. Infection, inflammation, or a fracture in the bones or cartilage in your chest can cause pain or discomfort. Sometimes chest pain or pressure is caused by poor blood flow to your heart (angina). Chest pain may also be caused by life-threatening conditions such as a heart attack or blood clot in your lungs. DISCHARGE INSTRUCTIONS: Call 911 if: You have any of the following signs of a heart attack: Squeezing, pressure, or pain in your chest You may also have any of the following: Discomfort or pain in your back, neck, jaw, stomach, or arm Shortness of breath Nausea or vomiting Lightheadedness or a sudden cold sweat Return to the emergency department if: You have chest discomfort that gets worse, even with medicine. You cough or vomit blood. Your bowel movements are black or bloody. You cannot stop vomiting, or it hurts to swallow. Contact your healthcare provider if: You have questions or concerns about your condition or care. - Post Discharge Activity
[2019-11-23 13:30] LABS: BASO % 0.4 % (0-2.0); EOS % 1.8 % (0-4.5); HEMATOCRIT 38.4 % (35.4-49); MCH 28.5 pg (25.7-33.7); MCHC 33.8 g/dl (32.0-35.9); MEAN CELL VOLUME 84.4 fl (80-96); MONO % 9.8 % (3.8-10.2); PLATELET COUNT 401 K/MM3 (134-434); RBC 4.55 M/mm3 (4.00-5.60); WHITE BLOOD COUNT 8.2 K/mm3 (4.0-10.0)
[2019-11-23 14:18] LABS: ALBUMIN 3.5 g/dl (3.4-5.0); ALK PHOS 95 U/L (45-117); ANION GAP 6 MMOL/L (8-16); BILIRUBIN,TOTAL 0.4 mg/dL (0.2-1); BLOOD UREA NITROGEN 13.8 mg/dL (7-18); CALCIUM 9.1 mg/dL (8.5-10.1); CHLORIDE 106 mmol/L (98-107); CO2 26 mmol/L (21-32); CREATININE 0.9 mg/dL (0.55-1.3); GLUCOSE,RANDOM 92 mg/dL (74-106); POTASSIUM 4.3 mmol/L (3.5-5.1); SGOT/AST 20 U/L (15-37); SGPT/ALT 29 U/L (13-61); SODIUM 137 mmol/L (136-145); TOT PROT 7.4 g/dl (6.4-8.2)
--- NOTE | 2019-11-23 14:51 | EKG ---
Test Reason : Blood Pressure : / mmHG Vent. Rate : 053 BPM Atrial Rate : 053 BPM P-R Int : 188 ms QRS Dur : 114 ms QT Int : 436 ms P-R-T Axes : 053 009 026 degrees QTc Int : 409 ms SINUS BRADYCARDIA WHEN COMPARED WITH ECG OF 06-OCT-2019 13:40, NO SIGNIFICANT CHANGE WAS FOUND Confirmed by CHATO JACKSON MD ([id number]) on 11/23/2019 2:51:31 PM Referred By: Confirmed By:CHATO JACKSON MD
--- NOTE | 2019-11-23 14:56 | PDOC ---
Documentation entered by Gabriel Chamberlain SCRIBE, acting as scribe for Girish Bender MD. Girish Bender MD: This documentation has been prepared by the rodibeBulmaro Angel, SCRIBE, under my direction and personally reviewed by me in its entirety. I confirm that the documentation accurately reflects all work, treatment, procedures, and medical decision making performed by me. Attending Attestation - Resident Resident Name: RejiKota monae - ED Attending Attestation I have performed the following: I have examined & evaluated the patient, The case was reviewed & discussed with the resident, I agree w/resident's findings & plan, Exceptions are as noted - HPI HPI: 11/23/19 13:42 The patient is a 59 year old male with a significant past medical history of HTN, HLD and hx of a recent 'eye stroke' who presents to the ED with palpitations, chest tightness, and SOB.. The patient states he experiences these episodes occasionally but has increasing in frequency since he had his eye stroke. Pt attributes his symptmos to anxiety, states that the sypmtmos starts spontnaously and usually respoves spontaneously, lasting a few minutes before resolving. The pt describes the sypmtoms as feeling a rapid heart beat. He denie sany n/v, f/c, headache, sob, cp, abd pain, back pain, neck pain. - Physicial Exam PE: 11/23/19 14:39 GENERAL: The patient is awake, alert, and fully oriented, Nontoxic - in no acute distress. HEAD: Normocephalic, atraumatic. EYES: extraocular movements intact, sclera anicteric, conjunctiva clear. Diminished vision in the R eye ENT: Normal voice, Moist mucous membranes. NECK: Normal range of motion, supple LUNGS: Breath sounds equal, clear to auscultation bilaterally. No wheezes, no rhonchi, no rales. HEART: Regular rate and rhythm, normal S1 and S2 without murmur, rub or gallop. ABDOMEN: Soft, nontender, No guarding, no rebound. No CVA tenderness EXTREMITIES: Normal range of motion, trace edema. NEUROLOGICAL: No facial assymetry, Normal speech, PSYCH: Normal mood, normal affect. SKIN: Warm, Dry, normal turgor, - Medical Decision Making 11/23/19 14:44 Differential for the patient's symptoms includes possible ACS however in light of his recent CR AO, unclear cause of his CRAO - ?runs of afib leading to his CRAO? 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 davis of cardiology - agrees with our management recommends that he fu with him as an outpatient cardiology for holter monitor return precautions were discussed Heart Score/ECG Review - ECG Impressions Comment:: 11/23/19 14:48 Twelve-lead EKG was performed and reviewed by me. There is normal sinus rhythm with a rate of 53 The axis is normal. The intervals are normal. There is normal R wave progression There are no ST or T wave abnormalities. poor baseline, +artifacts Discharge - Discharge Information Problems reviewed: Yes Clinical Impression/Diagnosis: Palpitations Condition: Improved Disposition: HOME - Admission No - Follow up/Referral Referrals: [facility] [place] [facility] [place] [Provider Group] Steve Roth MD [Non Staff, Medical] - Janice Kat [Non Staff, Medical] - Amber Garrett MD [Staff Physician] - Laurent Li MD [Staff Physician] - Adama Allison MD [Non Staff, Medical] - Lonnie Davis MD [Staff Physician] - Trini Olsen [Primary Care Provider] - - Patient Discharge Instructions Patient Printed Discharge Instructions: DI for Anxiety -- Adult Additional Instructions: You came to the ER for rapid heart rate, chest tightness, and feelings of anxiety. You received labs and EKG. You labs and EKG were un concerning for an acute cardiac event. You were considered medically stable and safe to return home. Please follow up with your warp knit operator regarding your visit to the ER. Please also consider finding a psychiatrist to manage your anxiety. WHAT YOU NEED TO KNOW: Chest pain can be caused by a range of conditions, from not serious to life- threatening. Chest pain can be a symptom of a digestive problem, such as acid reflux or a stomach ulcer. An anxiety attack or a strong emotion, such as anger, can also cause chest pain. Infection, inflammation, or a fracture in the bones or cartilage in your chest can cause pain or discomfort. Sometimes chest pain or pressure is caused by poor blood flow to your heart (angina). Chest pain may also be caused by life-threatening conditions such as a heart attack or blood clot in your lungs. DISCHARGE INSTRUCTIONS: Call 911 if: You have any of the following signs of a heart attack: Squeezing, pressure, or pain in your chest You may also have any of the following: Discomfort or pain in your back, neck, jaw, stomach, or arm Shortness of breath Nausea or vomiting Lightheadedness or a sudden cold sweat Return to the emergency department if: You have chest discomfort that gets worse, even with medicine. You cough or vomit blood. Your bowel movements are black or bloody. You cannot stop vomiting, or it hurts to swallow. Contact your healthcare provider if: You have questions or concerns about your condition or care. - Post Discharge Activity
[2019-11-23 18:33] VITALS: BP 129/78; PULSE 60; TEMP 98.7
--- NOTE | 2019-11-25 21:38 | EKG ---
Test Reason : Blood Pressure : / mmHG Vent. Rate : 054 BPM Atrial Rate : 054 BPM P-R Int : 186 ms QRS Dur : 124 ms QT Int : 440 ms P-R-T Axes : 045 013 041 degrees QTc Int : 417 ms SINUS BRADYCARDIA NON-SPECIFIC INTRA-VENTRICULAR CONDUCTION DELAY BORDERLINE ECG WHEN COMPARED WITH ECG OF 23-NOV-2019 13:16, NO SIGNIFICANT CHANGE WAS FOUND Confirmed by BHAVYA PUGH MD ([id number]) on 11/25/2019 9:38:25 PM Referred By: Confirmed By:BHAVYA PUGH MD
== END 2019-11-23 18:56 | disposition home or self-care (01) ==
LOC: JER 12:07
DX: F41.9 Anxiety disorder, unspecified (principal)
CPT/HCPCS: 36415; 71046-TC-FY; 80053; 82550; 84484; 85025; 93005; 93010; 99284-25

== ENCOUNTER 2022-01-11 14:44 | Emergency (ER) | payer OTHER ==
[2022-01-11 14:54] VITALS: TEMP 97.5; BMI 32.4
[2022-01-11 17:46] LABS: BASO % 0.4 % (0-2.0); EOS % 2.3 % (0-4.5); HEMATOCRIT 39.8 % (35.4-49); LYMPH % 22.2 % (8-40); MCH 27.4 pg (25.7-33.7); MCHC 32.8 g/dl (32.0-35.9); MEAN CELL VOLUME 83.7 fl (80-96); MEAN PLT VOLUME 7.2 fl (7.5-11.1); MONO % 10.2 % (3.8-10.2); NEUT % 64.9 % (42.8-82.8); PLATELET COUNT 438 10^3/uL (134-434); RBC 4.75 M/mm3 (4.00-5.60); RDW 15.5 % (11.9-15.9); WHITE BLOOD COUNT 8.4 K/mm3 (4.0-10.0)
[2022-01-11 17:59] LABS: CALCIUM 9.6 mg/dL (8.5-10.1)
[2022-01-11 18:00] LABS: ALBUMIN 3.6 g/dl (3.4-5.0); BLOOD UREA NITROGEN 15.6 mg/dL (7-18)
[2022-01-11 18:03] LABS: CREATININE 0.8 mg/dL (0.55-1.3)
[2022-01-11 18:04] LABS: BILIRUBIN,TOTAL 0.4 mg/dL (0.2-1); TOT PROT 7.7 g/dl (6.4-8.2)
[2022-01-11 22:01] VITALS: BP 162/96; PULSE 71; RESP 20
== END 2022-01-11 22:04 | disposition left against medical advice (07) ==
LOC: JER 14:44
DX: R42 Dizziness and giddiness (principal); R20.2 Paresthesia of skin
CPT/HCPCS: 36415; 70450-TC; 71046-TC-FY; 80053; 84484; 85025; 93005; 93010; 99285-25